=== PATIENT | male | born 1955 | race Caucasian/White ===

== ENCOUNTER 2020-11-26 14:14 | Outpatient (CLI) | payer MEDICARE, OTHER ==
--- NOTE | 2020-11-26 16:46 | Ultrasound Report ---
PROCEDURE: Duplex Lwr Ext Arterial Bilat INDICATIONS: IDIOPATHIC PERIPHERAL NEUROPATHY, THROMBOANGIITIS TECHNIQUE: Color and pulse Doppler interrogation was performed of both lower extremity arterial systems, with im age documentation. COMPARISON: None FINDINGS: Right lower extremity: Common femoral artery: 95 cm/sec, with triphasic flow. Deep femoral artery: 84 cm/sec, with triphasic flow. Proximal superficial femoral artery: 95 cm/sec, with triphasic flow. Mid superficial femoral artery: 104 cm/sec, with triphasic flow. Distal superficial femoral artery: 97 cm/sec, with triphasic flow. Popliteal artery: 54 cm/sec, with triphasic flow. Posterior tibial artery: 40 cm/sec, with biphasic flow. Anterior tibial artery/dorsalis pedis: 77/37 cm/sec, with triphasic/biphasic flow. Clemente-scale imaging description: Atherosclerotic calcific and soft plaque throughout, mild and relati ve severity. Left lower extremity: Common femoral artery: 71 cm/sec, with triphasic flow. Deep femoral artery: 51 cm/sec, with triphasic flow. Proximal superficial femoral artery: 61 cm/sec, with triphasic flow. Mid superficial femoral artery: 69 cm/sec, with triphasic flow. Distal superficial femoral artery: 63 cm/sec, with triphasic flow. Popliteal artery: 67 cm/sec, with triphasic flow. Posterior tibial artery: 47 cm/sec, with triphasic flow. Anterior tibial artery/dorsalis pedis: 45/0 cm/sec, with biphasic/absent flow. Clemente-scale imaging description: Atherosclerotic calcific and soft plaque greater distally on the lef t than the right. IMPRESSION: Atherosclerotic calcific and soft plaquing is greater on the left than the right distally, associated with absent visualized flow within the dorsalis pedis artery on the left. Dampening of catheter flow indicates progressive greater influence of the atherosclerotic arterial stenosis along the lower ext remity arterial vasculature bilaterally. No flow visualized at the dorsalis pedis on the left. Reviewed by: Ajit Cee MD on 11/26/2020 4:44 PM PST Approved by: Ajit Cee MD on 11/26/2020 4:44 PM PST Station ID: [id number]
== END 2020-11-26 14:15 | disposition home or self-care (01) ==
LOC: DI 14:14
PROVIDERS: ATTEND Family Medicine
DX: G60.9 Hereditary and idiopathic neuropathy, unspecified (principal); I73.1 Thromboangiitis obliterans [Buerger's disease]
CPT/HCPCS: 93925